=== PATIENT | female | born 1945 | race Caucasian/White ===

== ENCOUNTER 2016-11-28 12:22 | Observation (INO) | payer OTHER ==
--- NOTE | 2016-11-28 12:28 | EDPHY ---
H & P Time Seen by Provider: 11/28/16 12:27 HPI/ROS: CHIEF COMPLAINT: Chest tightness and dizziness since 10:00 a.m. HISTORY OF PRESENT ILLNESS: This 71-year-old woman is brought in by her caregiver who arrived at the patient's house at 10:00 a.m. and relates that the patient at that time had moderate left-sided chest heaviness without radiation, associated with dizziness and feeling chilled. She was unsure of when it started. Currently the patient just has a little bit of left chest heaviness but denies other symptoms. REVIEW OF SYSTEMS: Eye: no change in vision ENT: no sore throat Cardiac: HPI Pulmonary: no cough or SOB Abdomen: no vomiting, diarrhea, abdominal pain Musculoskeletal: no back pain or neck pain, no recent fall or trauma. Skin: no rash Neuro: no headache Constitutional: no fever : no urinary symptoms A comprehensive 10 point review of systems and further history is unobtainable because of the patient's Alzheimer's PAST MEDICAL HISTORY: Appendectomy, Alzheimer's. Negative for hypertension hypercholesterolemia. Negative for diabetes Social history: Nonsmoker, family history for coronary disease or DVT unknown. Here with a caregiver. General Appearance: Alert and conversant, cooperative. Eyes: No scleral icterus. ENT, Mouth: Normal mucous membranes. Crack on her right lower lip consistent with cold sore Respiratory: Normal respiratory effort, breath sounds equal, lungs are clear to auscultation. Cardiovascular: Regular rate and rhythm. Gastrointestinal: Abdomen is soft and non tender. Neurological: Alert and oriented x3. Normally conversant. Face symmetric, normal movement and sensation in all extremities. Skin: Warm and dry, no rashes. Musculoskeletal: No peripheral edema and no joint swelling. No calf tenderness. Psychiatric: Not agitated. Emergency Department course/MDM: Oral aspirin 324 mg. Labs to include troponin and D-dimer. Chest x-ray. Results discussed with the patient. Admission to [facility] for chest pain with associated symptoms in this 71-year-old patient was unable to give detailed history because of Alzheimer's. However she does appear quite functional and apparently hikes regularly in the [place] area near her residence in [facility], per her caregiver. Smoking Status: Never smoked Constitutional: Initial Vital Signs Temperature (C) 36.6 C 11/28/16 12:22 Heart Rate 66 11/28/16 12:22 Respiratory Rate 18 11/28/16 12:22 Blood Pressure 152/87 H 11/28/16 12:22 O2 Sat (%) 97 11/28/16 12:22 O2 Delivery Mode Room Air Allergies/Adverse Reactions: banana [Banana] Allergy (Verified 07/18/14 02:01) Penicillins Allergy (Verified 07/18/14 02:01) Sulfa (Sulfonamide Antibiotics) Allergy (Verified 07/18/14 02:01) [place]acado Allergy (Uncoded 07/18/14 02:01) Home Medications: Medication Instructions Recorded Namenda 10 mg 11/28/16 Omeprazole 11/28/16 Medical Decision Making - Diagnostics EKG Interpretation: 12-lead EKG interpreted by me; official reading is in trace master. My interpretation is sinus rhythm, rate 63, no acute ischemic changes. Imaging: Chest x-ray viewed by myself negative for acute reason for chest pain. Differential Diagnosis: Differential diagnosis considered for chest pain including but not limited to myocardial ischemia, aortic dissection, pericarditis, pulmonary embolus, chest wall pain, pleural inflammation and pulmonary infectious causes. Consult/Admit Bed Type: [place] [id number] - Data Points Laboratory Results: Laboratory Results 11/28/16 12:38 11/28/16 12:38 11/28/16 12:38 WBC 7.64 10^3/uL (3.80-9.50) RBC 4.97 10^6/uL (4.18-5.33) Hgb 13.2 g/dL (12.6-16.3) Hct 40.8 % (38.0-47.0) MCV 82.1 fL (81.5-99.8) MCH 26.6 L pg (27.9-34.1) MCHC 32.4 g/dL (32.4-36.7) RDW 14.7 % (11.5-15.2) Plt Count 309 10^3/uL (150-400) MPV 10.7 fL (8.7-11.7) Neut % (Auto) 71.5 % (39.3-74.2) Lymph % (Auto) 19.0 % (15.0-45.0) [place] % (Auto) 7.1 % (4.5-13.0) Eos % (Auto) 0.8 % (0.6-7.6) Baso % (Auto) 0.7 % (0.3-1.7) Nucleat RBC Rel Count 0.0 % (0.0-0.2) Absolute Neuts (auto) 5.47 10^3/uL (1.70-6.50) Absolute Lymphs (auto) 1.45 10^3/uL (1.00-3.00) Absolute Monos (auto) 0.54 10^3/uL (0.30-0.80) Absolute Eos (auto) 0.06 10^3/uL (0.03-0.40) Absolute Basos (auto) 0.05 10^3/uL (0.02-0.10) Absolute Nucleated RBC 0.00 10^3/uL (0-0.01) Immature Gran % 0.9 % (0.0-1.1) Immature Gran # 0.07 10^3/uL (0.00-0.10) D-Dimer 0.37 ug/mLFEU (0.00-0.50) Sodium 138 mEq/L (134-144) Potassium 3.7 mEq/L (3.5-5.2) Chloride 99 mEq/L (97-110) Carbon Dioxide 27 mEq/l (22-31) Anion Gap 12 mEq/L (8-16) BUN 9 mg/dL (7-23) Creatinine 0.6 mg/dL (0.6-1.0) Estimated GFR > 60 Glucose 103 H mg/dL (70-100) Calcium 9.1 mg/dL (8.5-10.4) Troponin I < 0.012 ng/mL (0-0.034) Medications Given: Discontinued Medications Aspirin (Aspirin) 324 mg PO EDNOW ONE Stop: 11/28/16 12:42 Last Admin: 11/28/16 12:49 Dose: 324 mg Nitroglycerin (Nitrostat) 0.4 mg SL Q5M PRN PRN Reason: Chest Pain Stop: 11/28/16 12:52 Last Admin: 11/28/16 13:15 Dose: 0.4 mg Departure - Departure Disposition: [facility] Acute Clinical Impression: Chest pain Qualifiers: Chest pain type: unspecified Qualifier Code: (R07.9) Chest pain, unspecified Condition: Good
--- NOTE | 2016-11-28 12:36 | CPEKG ---
Heart Rate: 63 RR Interval: 952 P-R Interval: 176 QRSD Interval: 82 QT Interval: 428 QTC Interval: 439 P [place]: 42 QRS [place]: 36 T Wave [place]: 36 EKG Severity - NORMAL ECG - EKG Impression: SINUS RHYTHM Electronically Signed By: Stu Guillen 28-Nov-2016 12:46:14
[2016-11-28] MEDS ORDERED: ASPIRIN 81 MG CHEWABLE TAB PO ONE (12:41)
[2016-11-28] MEDS ORDERED: NITROGLYCERIN 0.4 MG BTL SL PRN ×2 (12:41→14:26)
[2016-11-28 12:45] LABS: % IMMATURE GRANULYOCYTES 0.9 % (0.0-1.1); ABSOLUTE IMMATURE GRANULOCYTES 0.07 10^3/uL (0.00-0.10); ADD DIFF? NO; ADD MORPH? NO; ADD SCAN? NO; ATYPICAL LYMPHOCYTE FLAG 20 (0-99); FRAGMENT RBC FLAG 0 (0-99); HEMATOCRIT 40.8 % (38.0-47.0); HEMOGLOBIN 13.2 g/dL (12.6-16.3); LEFT SHIFT FLG 0 (0-99); LIPEMIA HEMOLYSIS FLAG 80 (0-99); MEAN CELL HEMOGLOBIN 26.6 pg (27.9-34.1); MEAN CELL HEMOGLOBIN CONCENTR. 32.4 g/dL (32.4-36.7); MEAN CELL VOLUME 82.1 fL (81.5-99.8); MEAN PLATELET VOLUME 10.7 fL (8.7-11.7); PLATELET CLUMPS FLAG 0 (0-99); PLATELET COUNT 309 10^3/uL (150-400); RED BLOOD CELL COUNT 4.97 10^6/uL (4.18-5.33); RED CELL DISTRIBUTION WIDTH 14.7 % (11.5-15.2)
[2016-11-28 13:09] LABS: ANION GAP 12 mEq/L (8-16); CALCIUM 9.1 mg/dL (8.5-10.4); CARBON DIOXIDE 27 mEq/l (22-31); CHLORIDE 99 mEq/L (97-110); CREATININE 0.6 mg/dL (0.6-1.0); GLOMERULAR FILTRATION RATE > 60; GLUCOSE 103 mg/dL (70-100); POTASSIUM 3.7 mEq/L (3.5-5.2); SODIUM 138 mEq/L (134-144)
[2016-11-28] MEDS ORDERED: NITROGLYCERIN 0.4 MG BTL SL ONE (13:13)
[2016-11-28 13:19] LABS: TROPONIN I < 0.012 ng/mL (0-0.034)
--- NOTE | 2016-11-28 13:47 | DX ---
Chest, PA Upright and Lateral Views - November 28, 2016, at 12:27 p.m. Clinical History: 71-year-old female with chest heaviness and dizziness. Comparison Study: Chest, dated March 07, 2016. Findings: Telemetry monitoring lead lines are present. There is a mild sigmoid-shaped thoracolumbar scoliosis with multilevel degenerative changes. The cardiac silhouette is normal in size. There is so me tortuosity of the thoracic aorta. The lungs are well-expanded. There is no focal infiltrate, atele ctasis, pleural effusion, peripheral interstitial edema, or pneumothorax. The trachea is midline. Impression: No acute abnormality, or substantial change from March 07, 2016.
[2016-11-28] MEDS ORDERED: ONDANSETRON 4 MG/2 ML VIAL IVP PRN (14:26)
[2016-11-28] MEDS ORDERED: ACETAMINOPHEN 325 MG TAB PO PRN (14:26)
[2016-11-28] MEDS ORDERED: ONDANSETRON DISINTEGRATING 4 MG TAB PO PRN (14:26)
--- NOTE | 2016-11-28 14:46 | CPEKG ---
Heart Rate: 51 RR Interval: 1176 P-R Interval: 192 QRSD Interval: 82 QT Interval: 448 QTC Interval: 413 P [place]: 57 QRS [place]: 39 T Wave [place]: 27 EKG Severity - NORMAL ECG - EKG Impression: SINUS RHYTHM Electronically Signed By: Arnol Alaniz 28-Nov-2016 15:41:33
--- NOTE | 2016-11-28 15:05 | PDEACUHP ---
History and Physical - Chief Complaint chest pain - History of Present Illness 71 yo F with PMH of Alzheimer's dementia admitted with chest pain. History is limited by patients dementia, which affects her memory significantly, however with the help of her caregiver she notes that pain on the left side of her chest began suddenly this afternoon. There was no radiation to the pain but there was associated nausea without vomiting. She continues to have some left sided pressure. It is not exertional or associated with deep breathing. She does not think she has ever had similar sxs. She is quite active and walks several miles every day and never has chest pain or sob with that. History Information - Allergies/Home Medication List Allergies/Adverse Reactions: banana [Banana] Allergy (Verified 07/18/14 02:01) Penicillins Allergy (Verified 07/18/14 02:01) Sulfa (Sulfonamide Antibiotics) Allergy (Verified 07/18/14 02:01) [place]acado Allergy (Uncoded 07/18/14 02:01) Home Medications: Donepezil HCl [Aricept 5 MG (*)] 10 mg PO DAILY 11/28/16 [Last Taken 11/28/16] Herbals/Supplements -Info Only 1 ea PO DAILY 11/28/16 [Last Taken Unknown] Memantine HCl [Namenda Xr] 21 mg PO DAILY 11/28/16 [Last Taken 11/28/16] Multivitamins [Multivitamin (*)] 1 each PO DAILY 11/28/16 [Last Taken 11/28/16] [place]-3 Fatty Acids [Fish Oil 1000 mg (*)] 1,000 mg PO DAILY 11/28/16 [Last Taken 11/28/16] I have personally reviewed and updated: family history, medical history, social history, surgical history - Past Medical History dementia, hypertension, hyperlipidemia - Surgical History Reports: appendectomy - Family History Positive for: non-pertinent - Social History Smoking Status: Never smoked Alcohol Use: None Drug Use: None Additional social history: lives independently, has 2 children, has a caregiver Review of Systems ROS: 10pt was reviewed & negative except for what was stated in HPI & below Physical Exam Temp Pulse Resp BP Pulse Ox 36.2 C 58 L 16 129/65 H 96 11/28/16 14:10 11/28/16 14:10 11/28/16 14:10 11/28/16 14:10 11/28/16 14:10 Constitutional: no apparent distress, appears nourished Eyes: PERRL Ears, Nose, Mouth, Throat: moist mucous membranes, hearing normal Cardiovascular: regular rate and rhythym, no murmur, rub, or gallop, No edema Respiratory: no respiratory distress, no rales or rhonchi Gastrointestinal: normoactive bowel sounds, soft, non-tender abdomen Skin: warm, normal color Musculoskeletal: no muscle tenderness Neurologic: AAOx3, sensation intact bilaterally Psychiatric: interacting appropriately, not anxious, poor memory Lab Data & Imaging Review 11/28/16 12:38 11/28/16 12:38 WBC 7.64 10^3/uL (3.80-9.50) 11/28/16 12:38 RBC 4.97 10^6/uL (4.18-5.33) 11/28/16 12:38 Hgb 13.2 g/dL (12.6-16.3) 11/28/16 12:38 Hct 40.8 % (38.0-47.0) 11/28/16 12:38 MCV 82.1 fL (81.5-99.8) 11/28/16 12:38 MCH 26.6 pg (27.9-34.1) L 11/28/16 12:38 MCHC 32.4 g/dL (32.4-36.7) 11/28/16 12:38 RDW 14.7 % (11.5-15.2) 11/28/16 12:38 Plt Count 309 10^3/uL (150-400) 11/28/16 12:38 MPV 10.7 fL (8.7-11.7) 11/28/16 12:38 Neut % (Auto) 71.5 % (39.3-74.2) 11/28/16 12:38 Lymph % (Auto) 19.0 % (15.0-45.0) 11/28/16 12:38 [place] % (Auto) 7.1 % (4.5-13.0) 11/28/16 12:38 Eos % (Auto) 0.8 % (0.6-7.6) 11/28/16 12:38 Baso % (Auto) 0.7 % (0.3-1.7) 11/28/16 12:38 Nucleat RBC Rel Count 0.0 % (0.0-0.2) 11/28/16 12:38 Absolute Neuts (auto) 5.47 10^3/uL (1.70-6.50) 11/28/16 12:38 Absolute Lymphs (auto) 1.45 10^3/uL (1.00-3.00) 11/28/16 12:38 Absolute Monos (auto) 0.54 10^3/uL (0.30-0.80) 11/28/16 12:38 Absolute Eos (auto) 0.06 10^3/uL (0.03-0.40) 11/28/16 12:38 Absolute Basos (auto) 0.05 10^3/uL (0.02-0.10) 11/28/16 12:38 Absolute Nucleated RBC 0.00 10^3/uL (0-0.01) 11/28/16 12:38 Immature Gran % 0.9 % (0.0-1.1) 11/28/16 12:38 Immature Gran # 0.07 10^3/uL (0.00-0.10) 11/28/16 12:38 D-Dimer 0.37 ug/mLFEU (0.00-0.50) 11/28/16 12:38 Sodium 138 mEq/L (134-144) 11/28/16 12:38 Potassium 3.7 mEq/L (3.5-5.2) 11/28/16 12:38 Chloride 99 mEq/L (97-110) 11/28/16 12:38 Carbon Dioxide 27 mEq/l (22-31) 11/28/16 12:38 Anion Gap 12 mEq/L (8-16) 11/28/16 12:38 BUN 9 mg/dL (7-23) 11/28/16 12:38 Creatinine 0.6 mg/dL (0.6-1.0) 11/28/16 12:38 Estimated GFR > 60 11/28/16 12:38 Glucose 103 mg/dL (70-100) H 11/28/16 12:38 Calcium 9.1 mg/dL (8.5-10.4) 11/28/16 12:38 Troponin I < 0.012 ng/mL (0-0.034) 11/28/16 12:38 Visualized and Interpreted Chest x-ray results: Yes Chest X-Ray results: no infiltrate, normal Visualized and Interpreted EKG results: Yes EKG Interpretation: Positive for: normal sinsus rhythm Assessment & Plan Assessment: Chest pain (Acute) 71 yo F without known significant cardiac risk factors presenting with chest pain # chest pain: difficult to get a full story given her dementia and poor memory however she did report to her caregiver sudden onset of left sided chest pain and notes continued chest pressure now. Initial w/u including ecg, cxr and labs are unremarkable. She is being monitored on telemetry, will obtain serial trops and eckgs. If initial w/u negative, will f/u with stress test in the am. # dementia: seems to be at baseline, patient has a caregiver accompanying her and sounds as if she is doing well living independently still # observation status Patient new to my care. Old records reviewed and summarized as above. Care plan reviewed with ER doctor and further hx obtained from patients caregiver present at bedside.
[2016-11-29 07:38] VITALS: RESP 18; TEMP 98; O2SAT 95
--- NOTE | 2016-11-29 08:02 | CPEKG ---
Heart Rate: 57 RR Interval: 1053 P-R Interval: 188 QRSD Interval: 82 QT Interval: 420 QTC Interval: 409 P May: 57 QRS May: 53 T Wave May: 34 EKG Severity - NORMAL ECG - EKG Impression: SINUS RHYTHM Electronically Signed By: Arnol Alaniz 29-Nov-2016 17:38:46
[2016-11-29 08:11] VITALS: BP 124/78; PULSE 70
[2016-11-29] MEDS ORDERED: Memantine Hcl [Namenda Xr] 21 MG PO SCH (09:00)
[2016-11-29] MEDS ORDERED: DONEPEZIL HCL 5 MG TAB PO SCH (09:00)
[2016-11-29] MEDS ORDERED: MULTIVITAMINS 1 EACH TAB PO SCH (09:00)
[2016-11-29] MEDS ORDERED: ASPIRIN 325 MG TAB PO SCH (09:00)
[2016-11-29] MEDS ORDERED: OMEGA-3 FATTY ACIDS 1,000 MG CAP PO SCH (09:00)
--- NOTE | 2016-11-29 14:27 | PDDCSUM ---
Discharge Summary Discharge Summary: Dates of service 11/28-11/29/16 Consultations: cardiology Hospital course by problem: # chest pain: appreciate cardiology input, given difficult history plan is for discharge home with f/u with cardiology, no med changes at this time # dementia: seems to be at baseline, patient has a caregiver accompanying her and sounds as if she is doing well living independently still Dc home >35 minutes spent in care of this patient more than half in coordination of care
--- NOTE | 2016-11-29 16:19 | GCON ---
[f rep st] CONSULTATION CARDIOVASCULAR CONSULTATION I have been asked to see the patient for evaluation of her chest pain and other medical problems. The patient is a woman who has very severe dementia. I have talked to her at great length. I spent a long time trying to piece together a very interestin g history. What she came in with was pain in the left chest, just subclavicular discomfort. It felt like a funn y feeling. There was no tightness, heaviness, shortness. It just came on. She has had it at least once and she does not remember having it more than once. It did not last very long, but she cannot g pedrito me a specific time and it was not very severe. It came on when she was doing nothing. When she exerts herself, when she hikes, when she walks around, when she is in her house and doing things, she never had this pain. Sometimes she gets it and she has complained to her son about it before because I have talked to him as well. The pain was not worse when she rubbed the area of pain. She could not make the pain worse or differ ent with position, activity, food, moving the arm, etcetera. The pain did not radiate anywhere. The pain was unassociated with other symptoms. Specifically, the pain was not associated with lighth eadedness, dizziness, sweatiness. The patient has not had any more of this pain today. Because of her pain, she came to the emergency room and was admitted to be evaluated. She tells me she does not have fever, chills, cough. She has no orthopnea, PND, or dyspnea on exertion. She has no fever. She has no nausea, vomiting, diarrhea, weight loss, or early satiety. She has not had any trauma with the head, neck, or chest. She has no significant peripheral edema. She is active. She is walking about and this activity has no impact on this pain. The pain did not radiate anywhere. It was not affected by breathing, position, food. She has not had any swollen lower extremities. She has had no trauma. She denies any systemic sympt oms of fatigue or lightheadedness. She has not had palpitations, near-syncope or syncope. CARDIAC RISK FACTORS: Negative for hypertension, diabetes mellitus, hyperlipidemia, hyperuricemia, s moking history, or family history of premature coronary disease or any history of known coronary tom ry disease. ALLERGIES: Penicillin and sulfa as well as some food. BODY AFTER ALLERGIES: MEDICATIONS ARE: Listed in the chart and include herbal medicines and Namenda as well. FAMILY HISTORY: She has no family history of premature coronary disease. No history of unexplained sudden in a young age. SOCIAL HISTORY: She was born in [place] and she cannot remember the name of the town. She exercise s by taking walks. She lives by herself. 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 She retired 3 years ago she says. She cannot identify the day, the month, the year, the vice president corporate communications, and not clearly where she is. She does know she is in the hospital near [place]. REVIEW OF SYSTEMS: A 10-point review of systems negative except as noted above, she has profound dem entia. PHYSICAL EXAM: VITAL SIGNS: Blood pressure 110/77, heart rate 66, respiratory rate 12. Earlier blo od pressure was 94/70. Heart rate has been 70, 76, 80 while she has been in the hospital. She is af ebrile. HEENT: Pupils equal and reactive. Mucous membranes and mouth moist. LUNGS: Clear to perc ussion. Rhonchi bilaterally. CARDIOVASCULAR: S1-S2, soft systolic murmur left sternal border. No diastolic murmur. No S3, S4. No rubs. PULMONARY: Rhonchi, no rales, wheezing or dullness. CVA: No tenderness. ABDOMEN: Soft, nontender, without masses. EXTREMITIES: No edema, inflammation, or ulceration. SKIN: Age-related changes. MENTAL STATUS: She does not know what day of the week is, the month, the year, or who the President is. She does not know what town she was born in. She did know she was in the hospital near [place], [place]. She did remember the name of the hospital. PSY CH: No obvious anxiety or depression. LABORATORY RESULTS: Sodium 138, potassium 3.7, chloride 99, CO2 of 27, BUN 9, creatinine 0.6, white count 7.6, hematocrit 40.8. She has had a chest x-ray done which shows no acute abnormality. She has an EKG which shows sinus rh ythm and no acute changes. She has nonspecific ST-T changes. Her chemistries have shown negative troponins x3. ASSESSMENT/PLAN: 1. Chest pain. 2. Question of hypertension. 3. Reports as she has hypertension in the record but she denies that. 4. To bed 2. 5. I spent a good deal of time talking to her about this issue. 6. We discussed her chest pain extensively. She has a pretty good story for chest discomfort. It i s not exertional. It is atypical and does not get worse with stress or activity. It is not relieved with rest. It does not radiate. It is not pleuritic. I am not sure of the cause of this woman's p ain but it does bother her. Nitroglycerin does not seem to have any impact on it but she cannot geo mber the pain by the time you gave her nitroglycerin pill, that is what happened earlier today with o staff. 7. She has no acute EKG changes. She has new acute enzyme rise. I recommended strongly that she re ceive medical therapy as needed if we begin to think it is cardiac pain. 8. There is nothing that makes me think it is cardiac pain at this time and I am not going to start a beta chris or nitrates. 9. I have talked to her son, Pee, extensively and gone over the options and given him my strong rec ommendation that we do not proceed with stress testing at this time, that we treat her medically if t hat is appropriate. She is clearly not having an acute myocardial infarction. She is not having ST- segment elevation myocardial infarction. She is not on any cardiovascular medications and she has lundy d now 1 episode of chest pain recently. Before that, she has had multiple episodes of pain and she h as been in the hospital before. I specifically recommended to the son that he bring her to my clinic and I will see her and that I th ink bringing her to the emergency room is not in her best interest because they would just do more en zymes, more testing and watch her, and I do not think it is going to be beneficial for her. Obviously, if she deteriorates significantly or has new symptoms, then will have to do that. In considering her chest pain syndrome, there is nothing that makes me think she has pulmonary emboli c disease. Her pulses are full and equal. There is nothing to suggest disease of the great vessels. There is nothing to suggest major GI or pulmonary pathology such as paraesophageal hernia, early acut e abdomen, GI bleed, etc. I did also tell the son I think that when she has more episodes of this and pretty sure she will get more episodes, he should try some Maalox. Also, he should try Tylenol and see how she improves. He can also put heat on the area. I have talked to Dr. De La Cruz about this patient. I have talked to the nursing staff about the patient and had a long conversation with the son. He is very happy to be picking her up and taking her home. She wants to go home today. Her prognosis is guarded in the sense that she has multiple major problems and significant dementia. She is at risk of sudden myocardial infarction, and the son is aware that. In lieu of all that, none the less, I would continue with the conservative medical approach as needed . I am not starting her with a beta chris right now, or sending her home on any new medications becau se there is nothing that makes me think she really has a cardiac issue here. Specifically, while she was in the hospital and said she had some chest pain, the nursing staff went to get some nitroglycer in and by the time they got it ready for her, she did not remember having pain. They gave her some n itroglycerin and afterwards, they asked if it helped. She did not remember what it was supposed to h elp for. So she in fact has a very significant dementia and I am sure that affects her ability to tell us what is going on. I will see her in clinic any time. /[id number]/MODL
== END 2016-11-29 15:18 | disposition home or self-care (01) ==
LOC: F1N 14:00
PROVIDERS: ADMIT Internal Medicine; ATTEND Internal Medicine
DX: R07.9 Chest pain, unspecified (principal); F03.90 Unspecified dementia, unspecified severity, without behavioral disturbance, psychotic disturbance, mood disturbance, and anxiety; Z88.0 Allergy status to penicillin; Z88.2 Allergy status to sulfonamides
CPT/HCPCS: 71020; 93005; 99285; G0378

== ENCOUNTER → 2016-12-29 | Outpatient (CLI) | payer OTHER ==
--- NOTE | 2016-12-29 17:30 | DX ---
DEXA Bone Mineral Densitometry Clinical Indications: Postmenopausal, screening for osteoporosis Comparison: None Technique: Bone Mineral Densitometry (BMD) by Dual Energy X-Ray Absorptiometry (DEXA) was performed utilizing the [email or web address] scanner. The lumbar spine was evaluated in the AP projection. The bilat eral hips and forearm were evaluated in the AP projection. Vertebral fracture assessment was also pe rformed. AP Lumbar Spine: The L1, L2, L3 and L4 vertebral bodies were evaluated. BMD: 1.137 gm/cm2 T-score: -0.5 SD Z-score: 1.3 SD Increased due to degenerative sclerosis. AP Left Hip: Total BMD: 0.755 gm/cm2 T-score: -2.0 SD Z-score: -0.4 SD AP Right Hip: Total BMD: 0.678 gm/cm2 T-score: -2.6 SD Z-score: -1.0 SD AP Right Forearm, 11/22: BMD: 0.620 gm/cm2 T-score: -2.9 SD Z-score: -1.0 SD Vertebral Fracture Assessment: No significant fracture deformity. Lumbar BMD is likely increase due to degenerative sclerosis and atherosclerotic calcification of the abdominal aorta. Conclusion: Considering the lowest measured site, the patient is osteoporotic and at increased risk for fracture. Since the forearm is the lowest measured site, it would be worthwhile to exclude hyperp arathyroidism. The ten year FRAX risk for any major osteoporotic fracture , which excludes the risk for a wrist frac ture, is 10.3% and for a hip fracture is 2.2%. Consider excluding secondary metabolic causes of bone loss (reported to be present in as many as 30% of patients with normal Z scores). Basic laboratory evaluation might include blood chemistries (calci um, phosphorus, alkaline phosphatase, liver function tests, creatinine, total protein), complete bloo d count, serum 25-OH- vitamin D3 level, 24-hour urine calcium, serum TSH and serum PTH. Targeted l aboratory testing based on individual patient circumstances might include serum electrophoresis (SPEP or UPEP), anti-tissue transglutaminase antibody levels (celiac disease) , serum bone specific alkal ine phosphatase, bone turnover markers (urine, serum) or fibroblast growth factor 23 (FGF 23)(evaluat e for unexplained osteomalacia). If secondary causes are excluded, then consider initiating treatment with a bisphosphonate (such as F osamax, Actonel or Boniva). If the patient is unable to use an oral bisphosphonate, another agent suc h as IV bisphosphonates (Boniva or Reclast), teriparatide (Forteo), a selective estrogen receptor mo dulator (Evista) or Denosumab ( anti RANKL monoclonal antibody) might be considered. If antiresorptive therapy is initiated and if clinically indicated, consider obtaining a baseline and 3 month followup bone resorption marker (NTX, CTX, TRAP5b or Pyridinoline, deoxypyridinoline) to mon itor the therapeutic effect. Supplementing an insufficient diet to achieve total intakes of 1500 mg calcium and 800 International Units of vitamin D daily should be considered. Osteoporosis prevention and treatment begins by modify ing risk factors. The patient should be encouraged to participate in a regular exercise program that includes weightbearing and muscle strengthening regimens, as is clinically appropriate. Recommend follow-up DEXA in one year to assess the efficacy of pharmacologic intervention and/or ermias ection of appropriate secondary cause.
== END ==
LOC: FIMAGING 13:15
PROVIDERS: ATTEND Family Medicine
DX: Z13.820 Encounter for screening for osteoporosis (principal); M81.0 Age-related osteoporosis without current pathological fracture; Z78.0 Asymptomatic menopausal state